=== PATIENT | female | born 1970 | race Caucasian/White ===

== ENCOUNTER 2017-08-28 02:49 | Observation (INO) ==
[2017-08-28] MEDS ORDERED: ASPIRIN 325 MG TABLET PO STA (04:18)
[2017-08-28] MEDS ORDERED: ASPIRIN 325 MG TABLET ONE (04:31)
[2017-08-28 04:59] LABS: Basophils # 0.1 10*3/uL (0.0-0.2); Basophils % 0.7 % (0.0-0.8); Eosinophils # 0.3 10*3/uL (0.0-0.87); Eosinophils % 3.3 % (0.00-10.9); Hemoglobin 14.9 GM/DL (12.0-16.0); Immature Granulocytes % 0.4 %; Immature Granulocytes Absolute 0.04 #; Lymphocytes # 2.3 10*3/uL (1.4-4.0); Lymphocytes % 25.6 % (21.3-54.2); Mean Corpuscular HGB Conc 33.9 GM/DL (32-36); Mean Corpuscular Hemoglobin 31 PG (27-34); Mean Corpuscular Volume 91.1 FL (87-102); Monocytes # 0.6 10*3/uL (0.11-0.8); Monocytes % 6.8 % (1.7-12.7); Neutrophils # 5.8 10*3/uL (1.4-7.4); Neutrophils % 63.2 % (38.7-73.9); Platelet Count 249 T/CUMM (130-400); Red Blood Count 4.83 MC/CUMM (3.8-5.5); Red Cell Distribution Width 12.7 % (9.3-17.3); White Blood Count 9.1 T/CUMM (4-12)
[2017-08-28 05:25] LABS: Albumin 3.8 G/DL (3.4-5.0); Bilirubin,Total 0.8 MG/DL (0.2-1.0); Calcium 8.9 MG/DL (8.5-10.1); Osmolality,Calculated 283.3 MOS/KG (273-304); Potassium 3.9 MMOL/L (3.5-5.1); Total Protein 7.2 G/DL (6.4-8.3)
[2017-08-28] MEDS ORDERED: metroNIDAZOLE INJ 500 MG in PREMIX 1 EACH IV STA (05:39)
[2017-08-28] MEDS ORDERED: CEFEPIME 2,000 MG in SODIUM CHLORIDE 0.9% 100 ML IV STA (05:39)
[2017-08-28] MEDS ORDERED: ENOXAPARIN 40 MG/0.4 ML SYRINGE SUBCUT SCH (06:30)
[2017-08-28] MEDS ORDERED: ONDANSETRON 4 MG/2 ML VIAL IV PRN (06:30)
[2017-08-28 07:18] LABS: Risk Ratio 2.21
[2017-08-28] MEDS ORDERED: ASPIRIN EC 325 MG TABLET PO SCH (09:00)
[2017-08-28] MEDS ORDERED: SIMVASTATIN 20 MG TABLET PO SCH (10:00)
[2017-08-28] MEDS ORDERED: FLUoxetine 20 MG CAPSULE PO SCH (10:30)
[2017-08-28 11:38] VITALS: BP 133/90
[2017-08-28] MEDS ORDERED: NITROGLYCERIN 2% OINT 1 INCH/GM PACK TOP SCH (12:00)
[2017-08-28] MEDS ORDERED: LOSARTAN/HCTZ 50-12.5 MG TABLET PO SCH (12:00)
[2017-08-28] MEDS ORDERED: LOSARTAN 50 MG TABLET PO SCH (12:00)
== END 2017-08-28 13:25 | disposition home or self-care (01) ==
LOC: N.ED 02:49 → N.EDINP 02:49
PROVIDERS: ADMIT Internal Medicine; ATTEND Internal Medicine